=== PATIENT | male | born 1975 | race Caucasian/White ===

== ENCOUNTER 2019-10-25 13:00 | Observation (INO) ==
[2019-10-25] MEDS ORDERED: *HR* LORazepam 2 MG/ML VIAL IVP ONE (13:05)
[2019-10-25] MEDS ORDERED: 0.9 % Sodium Chloride 1,000 ML IVC ONE (13:05)
[2019-10-25 13:19] LABS: Basophils % 0.3 %; Hematocrit 44.6 % (37.5-50.1); Hemoglobin 15.6 g/dL (12.9-16.9); Immature Granulocytes % 0.3 % (0-4); Lymphocytes % 10.3 %; Mean Corpuscular Hemoglobin 29.9 pg (28.0-33.3); Mean Corpuscular Volume 85.6 fL (83.0-100.0); Mean Platelet Volume 9.4 fL (9.4-12.4); Monocytes % 8.5 %; Platelet Count 375 K/mcL (140-400); Red Blood Count 5.21 M/mcL (4.19-5.50); Segmented Neutrophils % 80.6 %; White Blood Count 14.5 K/mcL (4.3-11.1)
[2019-10-25 13:20] LABS: Basophils # 0.1 K/mcL (0.0-0.2); Lymphocytes # 1.5 K/mcL (0.6-4.6); Monocytes # 1.2 K/mcL (0.0-1.3); Neutrophils # 11.7 K/mcL (1.6-8.9)
[2019-10-25 13:35] LABS: Bilirubin,Urine Negative (Negative); Blood,Urine Negative (Negative); Clarity,Urine Clear (Clear); Color,Urine Yellow (Yellow); Glucose,Urine (UA) Normal (Normal); Ketones,Urine 40 mg/dL (Negative); Leukocyte Esterase,Urine Negative (Negative); Nitrite,Urine Negative (Negative); Protein,Urine Trace mg/dL (Neg-Trace); Specific Gravity,Urine 1.022 (1.010-1.025); Urobilinogen,Urine Normal (Normal)
[2019-10-25 13:40] LABS: Acetaminophen < 10 mcg/mL (10-20); BUN/Creatinine Ratio 16 (6-26); Blood Urea Nitrogen 25 mg/dL (6-20); Calcium 10.6 mg/dL (8.6-10.3); Carbon Dioxide 14 mEq/L (23-29); Chloride 110 mEq/L (98-107); Creatine Kinase 587 Units/L (30-223); Ethanol < 10 mg/dL (Less than 10); Glucose 123 mg/dL (70-105); Magnesium 2.4 mg/dL (1.6-2.6); Osmolality,Calculated 302 (280-300); Salicylate < 2.5 mg/dL (15.0-30.0); Sodium 143 mEq/L (136-145); Troponin I < 0.03 ng/mL (< 0.04); eGFR For African Americans 57 (> 60); eGFR For Non-African Americans 47 (> 60)
[2019-10-25 13:42] LABS: Amphetamine Screen,Urine Positive ng/mL (Cutoff=1000); Barbiturate Screen,Urine Negative ng/mL (Cutoff=200); Benzodiazepines Screen,Urine Negative ng/mL (Cutoff=200); Cannabinoid Screen,Urine Negative ng/mL (Cutoff = 50); Cocaine Screen,Urine Negative ng/mL (Cutoff= 300); Opiate Screen,Urine Negative ng/mL (Cutoff=300); Phencyclidine Screen,Urine Negative ng/mL (Cutoff=25)
[2019-10-25 13:53] LABS: Thyroid Stimulating Hormone 26.444 mcIU/mL (0.340-5.600)
[2019-10-25] MEDS ORDERED: Naloxone 0.4 MG/ML INJ IVP PRN (14:35)
[2019-10-25] MEDS ORDERED: Ondansetron 4 MG/2 ML VIAL IVP PRN (14:35)
[2019-10-25] MEDS ORDERED: traZODone 50 MG TABLET PO PRN (14:37)
[2019-10-25] MEDS ORDERED: *HR* LORazepam 2 MG/ML VIAL IVP PRN (14:40)
[2019-10-25 16:03] LABS: Triiodothyronine (T3) Total 0.94 ng/mL (0.87-1.78)
[2019-10-25] MEDS: Sodium Bicarbonate 150 MEQ in D5% in Water 1,000 ML IVC SCH (16:03)
[2019-10-25 16:17] LABS: Estimated Average Glucose 108 mg/dl; Hemoglobin A1C 5.4 %
[2019-10-25] MEDS: cloNIDine HCL 0.1 MG TABLET PO SCH ×2 (16:45→20:16)
[2019-10-25] MEDS: *HR* Heparin 5,000 UNIT/ML VIAL SQ SCH (18:05)
[2019-10-26] MEDS: Sodium Bicarbonate 150 MEQ in D5% in Water 1,000 ML IVC SCH (04:22)
[2019-10-26 04:33] LABS: Basophils # 0.1 K/mcL (0.0-0.2); Basophils % 0.6 %; Eosinophils # 0.1 K/mcL (0.0-0.6); Eosinophils % 0.8 %; Hematocrit 40.5 % (37.5-50.1); Immature Granulocytes % 0.3 % (0-4); Lymphocytes # 1.9 K/mcL (0.6-4.6); Mean Corpuscular HGB Conc 33.1 g/dL (31.6-35.5); Mean Corpuscular Hemoglobin 29.6 pg (28.0-33.3); Mean Corpuscular Volume 89.4 fL (83.0-100.0); Mean Platelet Volume 9.1 fL (9.4-12.4); Monocytes # 0.9 K/mcL (0.0-1.3); Monocytes % 11.5 %; Neutrophils # 4.8 K/mcL (1.6-8.9); Platelet Count 254 K/mcL (140-400); Red Blood Count 4.53 M/mcL (4.19-5.50); Red Cell Distribution Width 12.4 % (11.5-14.5); Segmented Neutrophils % 61.8 %; White Blood Count 7.7 K/mcL (4.3-11.1)
[2019-10-26 04:34] LABS: Hemoglobin 13.4 g/dL (12.9-16.9)
[2019-10-26 04:52] LABS: Alanine Aminotransferase 22 Units/L (7-52); Albumin 4.4 g/dL (3.5-5.7); Albumin/Globulin Ratio 1.7 (1.1-2.2); Alkaline Phosphatase 42 Units/L (34-104); Aspartate Amino Transferase 37 Units/L (13-39); BUN/Creatinine Ratio 25 (6-26); Bilirubin,Total 1.9 mg/dL (0.3-1.0); Blood Urea Nitrogen 23 mg/dL (6-20); Calcium 8.7 mg/dL (8.6-10.3); Carbon Dioxide 25 mEq/L (23-29); Chloride 106 mEq/L (98-107); Creatine Kinase 989 Units/L (30-223); Globulin 2.6 g/dL (2.4-3.5); Glucose 104 mg/dL (70-105); Magnesium 2.4 mg/dL (1.6-2.6); Osmolality,Calculated 292 (280-300); Phosphorous 2.6 mg/dL (2.7-4.5); Potassium 3.5 mEq/L (3.5-5.1); Sodium 139 mEq/L (136-145); eGFR For African Americans > 60 (> 60); eGFR For Non-African Americans > 60 (> 60)
[2019-10-26] MEDS: *HR* Heparin 5,000 UNIT/ML VIAL SQ SCH ×2 (05:42→17:28)
[2019-10-26] MEDS: cloNIDine HCL 0.1 MG TABLET PO SCH ×3 (09:42→20:02)
[2019-10-26] MEDS: 0.9 % Sodium Chloride 1,000 ML IVC SCH ×2 (09:42→20:03)
[2019-10-26 13:56] LABS: Bacteria,Urine Few per hpf (None-Few); Bilirubin,Urine Negative (Negative); Blood,Urine Negative (Negative); Clarity,Urine Clear (Clear); Color,Urine Yellow (Yellow); Glucose,Urine (UA) Normal (Normal); Ketones,Urine 40 mg/dL (Negative); Leukocyte Esterase,Urine Negative (Negative); Mucus,Urine Few per lpf (None-Few); Nitrite,Urine Negative (Negative); PH,Urine 6.5 pH Units (5.0-8.0); Protein,Urine 30 mg/dL (Neg-Trace); Specific Gravity,Urine > 1.030 (1.010-1.025); Urobilinogen,Urine Normal (Normal)
[2019-10-27] MEDS: *HR* Heparin 5,000 UNIT/ML VIAL SQ SCH ×2 (05:12→16:49)
[2019-10-27] MEDS: 0.9 % Sodium Chloride 1,000 ML IVC SCH ×2 (06:08→16:47)
[2019-10-27 07:36] LABS: Albumin 3.9 g/dL (3.5-5.7); Albumin/Globulin Ratio 1.6 (1.1-2.2); Bilirubin,Direct 0.2 mg/dL (0.0-0.2); Bilirubin,Indirect 0.9 mg/dL (0.0-1.0); Bilirubin,Total 1.1 mg/dL (0.3-1.0); Globulin 2.4 g/dL (2.4-3.5); Total Protein 6.3 g/dL (6.4-8.9)
[2019-10-27] MEDS: cloNIDine HCL 0.1 MG TABLET PO SCH ×3 (07:43→20:53)
[2019-10-27] MEDS ORDERED: risperiDONE 1 MG TABLET PO SCH (21:00)
[2019-10-28] MEDS: 0.9 % Sodium Chloride 1,000 ML IVC SCH (00:44)
[2019-10-28] MEDS: *HR* Heparin 5,000 UNIT/ML VIAL SQ SCH (05:27)
[2019-10-28 07:06] LABS: Albumin 3.8 g/dL (3.5-5.7); Albumin/Globulin Ratio 1.6 (1.1-2.2); Bilirubin,Direct 0.1 mg/dL (0.0-0.2); Bilirubin,Indirect 0.6 mg/dL (0.0-1.0); Bilirubin,Total 0.7 mg/dL (0.3-1.0); Globulin 2.4 g/dL (2.4-3.5); Total Protein 6.2 g/dL (6.4-8.9)
[2019-10-28] MEDS: cloNIDine HCL 0.1 MG TABLET PO SCH (08:18)
[2019-10-28 10:45] VITALS: BP 107/66
== END 2019-10-28 16:02 | disposition home or self-care (01) ==
LOC: EMEROOARM 13:00 → 3BNU 13:00 → SUATTDRO 15:04 → 3BNU 16:13
PROVIDERS: ADMIT Internal Medicine; ATTEND Internal Medicine